=== PATIENT | female | born 1945 | race Asian ===

== ENCOUNTER → 2023-12-04 12:59 | Outpatient (REF) | payer MEDICARE, SELFPAY | LOC: RAD 12:59 | PROVIDERS: ATTENDING PHYSICIAN Internal Medicine Cardiovascular Disease; FAMILY PHYSICIAN Internal Medicine | DX: I25.10 Atherosclerotic heart disease of native coronary artery without angina pectoris (principal); I10 Essential (primary) hypertension; E78.2 Mixed hyperlipidemia; N18.9 Chronic kidney disease, unspecified; E11.69 Type 2 diabetes mellitus with other specified complication; R06.09 Other forms of dyspnea | CPT/HCPCS: 71046 ==